=== PATIENT | female | born 1930 | race Caucasian/White ===

== ENCOUNTER 2016-12-29 18:27 | Emergency (ER) | payer OTHER ==
[~2016-12-29] VITALS: Ht 162.6 cm; Wt 60.4 kg
[~2016-12-29 18:27] MED LIST: AMB5 PO; CIPR1TAB11 PO; CLTP PO; CYAN1TAB2 PO; GLUC10007 PO; MULT-506 PO; TOLT2TAB PO; TRAM1TAB14 PO; [UNRECOGNIZED DRUG - OTHER] PO; lasix; potassium
[2016-12-29 18:30] VITALS: TEMP 36.4; Ht 162.6 cm; Wt 60.4 kg
[2016-12-29] MEDS ORDERED: OYST500T47 PO (18:51)
[2016-12-29] MEDS ORDERED: OXYB5TAB PO (18:51)
[2016-12-29] MEDS ORDERED: CRDCD/180 PO (18:51)
[2016-12-29] MEDS ORDERED: CHOL1000 PO (18:51)
[2016-12-29] MEDS ORDERED: CEPH500C2 PO (19:14)
[2016-12-29] MEDS ORDERED: CEPHALEXIN 500MG HOME PACK 1 EA BTL PO ONE (19:15)
[2016-12-29 19:40] VITALS: BP 158/91; PULSE 92; O2SAT 98
--- NOTE | 2016-12-29 22:14 | EMERGENCY ROOM VISIT NOTE ---
ED Visit Note First contact with patient: 18:35 Chief Complaint: I think I have an infected on my leg. History of Present Illness: Ms. Oneill is an 78-year-old white female who ambulates into the ED expressing concerns about a possible infected, nonhealing wound over the anterior aspect of the left lower leg. Patient reports approximately 3 weeks ago she noticed a small dark dry patch of skin on the anterior aspect of the left lower leg. She reports she picked the dry skin off and it bled slightly. Within a week she noticed some mild redness and swelling in this area. She reports she was seen at a local urgent care center and was prescribed a 10 day course of antibiotics; she does not remember the name of the antibiotics and we attempted to contact her pharmacy they were already closed. She reports since finishing the antibiotic she still has redness and mild swelling. She also notes when she squeezes this area she has a small amount of clear yellowish drainage. She does report when the area is palpated is tender but if no one is touching the lesion she is not having any discomfort. She has been cleaning the area with soap and water and covered with an antibiotic dressing but that has not decreased the redness or swelling either. She denies fevers, chills, sweats, other skin eruptions, other skin color changes, decreased appetite, nausea, vomiting, chest pain, shortness of breath, left leg weakness/numbness/tingling. Review of Systems: As noted above in history of present illness. 8 body systems were reviewed and found to be negative as noted above. Past Medical History: Peripheral neuropathy, osteoarthritis, anemia, basal cell cancer, cataract surgery. Current Medications: Medications Dose Route/Sig Max Daily Dose Days Date Category Dose Instructions Keflex (Cephalexin Monohydrate) 500 Mg Cap 500 Mg PO QID 6 12/29/16 Rx Cardizem Cd (Diltiazem Hcl Coated Beads) Unknown Strength Cap Unknown Dose PO DAILY 12/29/16 Reported PT STATES "TAKES ON OCCASION". Calcium (Oyster Shell) Unknown Strength Tab Unknown Dose PO DAILY 12/29/16 Reported Vitamin D3 (Cholecalciferol) Unknown Strength Tab Unknown Dose PO DAILY 90 12/29/16 Reported Oxybutynin Chloride Er (Oxybutynin Chloride) Unknown Strength Tab Unknown Dose PO DAILY 90 12/29/16 Reported Glucosamine (Glucosamine Sulfate) 1,000 Mg Tab 1,000 Mg PO WK 09/24/13 Reported B-12 (Cyanocobalamin) 100 Mcg Tab 1,000 Mg PO DAILY 09/24/13 Reported Multivitamin (Multivitamins) Tab 1 Tab PO DAILY 02/24/07 Reported Allergies to Medications: Patient denies. Social History: Patient feels safe in her home environment IS not employed; she denies tobacco and alcohol use. Physical Examination: Vital Signs: Date Time Temp Pulse Resp B/P Pulse Ox O2 Delivery O2 Flow Rate FiO2 12/29/16 19:40 92 18 158/91 98 12/29/16 18:30 36.4 75 18 153/93 94 Room Air GENERAL: 86-year-old female in no acute distress, nontoxic-appearing, afebrile and hemodynamically stable. NEUROLOGICAL: Awake, alert and oriented to person, place and time. Answering questions appropriately and following commands. Normal gait. SKIN: Warm, dry and pink. Left Lower Leg: Over the mid tibial area patient has a superficial open wound that is surrounded with some mild erythema and edema. This area is slightly warm to the touch when compared to the rest of her leg and bilaterally. I did push on the wound was not able to express any fluids. There is no lymphangitis or palpable abscess. The wound is slightly tender to touch. Skin does not appear cellulitic. THORAX: Lungs sounds are clear to auscultation and equal bilaterally with symmetrical chest wall. ABDOMEN: Flat, soft and nontender. Positive bowel sounds in all quadrants. No guarding, rigidity or organomegaly. LEFT LOWER EXTREMITIES: Please note SKIN above. No gross bony deformity. No tenderness in the knee, ankle or foot. Mild tenderness over her soft tissue wound. Full range of motion in flexion and extension of the knee and plantar flexion, dorsiflexion and inversion and eversion of the ankle. Throughout the foot the skin was warm and pink and capillary refill is brisk. She is able to distinguish light sensations through all dermatomes. No calf tenderness or cords. ED Course: Patient is assessed as noted above. Patient's case was reviewed with Dr. Sam; she in apparently assessed the patient we agreed on diagnostic approach, treatment, disposition and plan. Patient's area of erythema was demarcated with a marker line and a clean bacitracin dressing was applied. Patient was educated about tonight's findings and instructed on her treatment plan; she verbalized understanding and agreement with this plan. Clinical Impression: Left lower leg wound infection. Disposition: Patient discharged home in stable condition; prior to departure she was reassessed and subjectively reported she was feeling the same. Plan: Comfort measures, wound care and worsening signs of instructions were discussed with the patient. Patient was placed on Keflex 500 mg 4 times a day for 7 days. Patient was encouraged to follow-up with her PCP or return to the ED and 36-48 hours for recheck. Patient was encouraged return the ED sooner for increasing redness/swelling, red streaking, fevers or any new/concerning symptoms.
== END 2016-12-29 19:41 | disposition home or self-care (01) ==
LOC: C.EDB 18:29 → C.EDD 19:41
DX: B99.9 Unspecified infectious disease (principal); S81.802A Unspecified open wound, left lower leg, initial encounter; Z79.899 Other long term (current) drug therapy; Z85.828 Personal history of other malignant neoplasm of skin; X58.XXXA Exposure to other specified factors, initial encounter; Y99.8 Other external cause status

== ENCOUNTER 2017-01-12 12:40 | Emergency (ER) | payer OTHER ==
[~2017-01-12] VITALS: Ht 162.6 cm; Wt 62.0 kg
[~2017-01-12 12:40] MED LIST changes: -AMB5 PO; +CHOL1000 PO; -CIPR1TAB11 PO; -CLTP PO; +CRDCD/180 PO; +OXYB5TAB PO; +OYST500T47 PO; -TOLT2TAB PO; -TRAM1TAB14 PO; -[UNRECOGNIZED DRUG - OTHER] PO; -lasix; -potassium
[2017-01-12 12:43] VITALS: TEMP 36.4
[2017-01-12] MEDS ORDERED: CALCTAB43 PO (13:11)
[2017-01-12] MEDS ORDERED: CHOL1CAP12 PO (13:11)
[2017-01-12] MEDS ORDERED: DTRSR/10 PO (13:11)
[2017-01-12] MEDS ORDERED: DILT90TA PO (13:11)
[2017-01-12] MEDS ORDERED: ZOLP10TA PO (13:11)
[2017-01-12] MEDS ORDERED: ALEN70TA2 PO (13:13)
[2017-01-12 13:15] VITALS: Ht 162.6 cm; Wt 62.0 kg
[2017-01-12 13:16] VITALS: O2SAT 99
--- NOTE | 2017-01-12 13:23 | EMERGENCY ROOM VISIT NOTE ---
History Report prepared by [place]: Brandy Jacobson Under the Supervision of: Dr. Robert Calix D.O. First contact with patient: 13:03 Chief Complaint: CARDIAC ASSESSMENT Stated Complaint: DIZZINESS Nursing Triage Summary: patient to ED via ALS, reports discontinuing cardizem one week ago because she was unsure why she was taking it, states "I just didn't feel it was necessary. But this morning at [facility] I was feeling weak and a little dizzy." denies chest pain, shortness of breath, recent illness History of Present Illness The patient is a 86 year old female who presents to the Emergency Room via ALS with complaints of constant generalized dizziness starting a few hours DENTIST. The patient states that earlier today she felt an onset of dizziness. The patient denies that she had room spinning dizziness but states she was generally dizzy. The patient states that she did miss breakfast this morning, but states that she has been eating and drinking normally. The patient states she does have some baseline left leg swelling but no recent change. The patient denies any rectal bleeding, chest pain, SOB, weakness in her arms or leg. The patient states that she had been taking Cardizem but about 1 week ago she stopped taking it because she did not know what she was taking it for. The patient states she has no history of blood clots, diabetes hypertension, myocardial infarctions or strokes. The patient states she did have a hysterectomy but has no history of cancer. Source of History: patient Onset: few hours DENTIST Position: other (global) Timing: constant Associated Symptoms: No SOB, No chest pain, No weakness Note: Associated symptoms: baseline left leg swelling. Patient denies rectal bleeding. Review of Systems See HPI for pertinent positives & negatives. A total of 10 systems reviewed and were otherwise negative. Past Medical & Surgical Surgical Problems: (1) H/O: hysterectomy Family History No pertient family history secondary to age. Social History Smoking Status: Never Smoker Alcohol Use: none Drug Use: none Marital Status: Occupation Status: retired Current/Historical Medications Scheduled Alendronate Sodium (Fosamax), 70 MG PO WK Calcium Carbonate-Vitamin D (Oyster Shell/Vitamin D), 1 TAB PO DAILY Cholecalciferol (D3), 400 UNITS PO DAILY Cyanocobalamin (B-12), 1,000 MG PO DAILY Diltiazem Hcl (Cardizem), 90 MG PO DAILY Glucosamine Sulfate (Glucosamine), 1,000 MG PO WK Multivitamin (Multivitamin), 1 TAB PO DAILY Oxybutynin Chloride (Oxybutynin Chloride ER), 20 MG PO DAILY Scheduled PRN Zolpidem Tartrate (Ambien), 10 MG PO HS PRN for Sleep Allergies Coded Allergies: No Known Allergies (Unverified , 01/12/17) Physical Exam Vital Signs Date Time Temp Pulse Resp B/P Pulse Ox O2 Delivery O2 Flow Rate FiO2 01/12/17 16:02 79 20 159/104 98 Room Air 01/12/17 14:15 86 20 143/80 99 Room Air 01/12/17 13:35 70 20 135/76 99 Room Air 76 132/81 85 147/85 01/12/17 13:16 99 Room Air 01/12/17 12:51 73 01/12/17 12:48 99 Room Air 01/12/17 12:45 96 Room Air 01/12/17 12:43 36.4 73 20 141/95 96 Room Air Physical Exam GENERAL: Patient is awake, alert, and in no acute distress. Patient is resting comfortably and showing no signs of anxiety EYES: The conjunctivae are clear. The pupils are round and reactive. EARS, NOSE, MOUTH AND THROAT: The nose is without any evidence of any deformity. Mucous membranes are moist tongue is midline NECK: The neck is nontender and supple. RESPIRATORY: Normal respiratory effort is noted there is no evidence of wheezing rhonchi or rales CARDIOVASCULAR: Regular rate and rhythm noted there no murmurs rubs or gallops normal S1 normal S2 GASTROINTESTINAL: The abdomen is soft. Bowel sounds are present in all quadrants. Abdomen is nontender MUSCULOSKELETAL/EXTREMITIES: There is no evidence of gross deformity full range of motion is noted in the hips and shoulders SKIN: There is no obvious evidence of any rash. There are no petechiae, pallor or cyanosis noted. Mild left calf tenderness with no signs of swelling, no signs of erythema. NEUROLOGIC: Patient is awake alert and oriented x3 strength is symmetric bilaterally. No facial droop appreciated. Medical Decision & Procedures ER Provider Diagnostic Interpretation: X-ray results as stated below per interpretation by me and the radiologist. CHEST ONE VIEW PORTABLE CLINICAL HISTORY: Altered mental status. Weakness. COMPARISON STUDY: No previous studies for comparison. FINDINGS: Lung volumes are normal. No consolidation is identified. There is no evidence of pulmonary edema. Cardiomediastinal silhouette is normal. There are several suspected calcified nodules within the lungs. IMPRESSION: No acute cardiopulmonary findings. Electronically signed by: Dat Light M.D. 01/12/2017 1:35 PM Dictated Date/Time: 01/12/2017 1:[address] results as stated below per my review and radiologist interpretation. CT OF THE HEAD WITHOUT CONTRAST CLINICAL HISTORY: Altered mental status. Weakness. Dizziness. COMPARISON STUDY: No previous studies for comparison. CT DOSE: 537.48 mGy.cm TECHNIQUE: Helical axial images of the head were obtained without IV contrast. Automated exposure control was utilized for the study. FINDINGS: No acute intracranial hemorrhage, midline shift or mass effect is present. Ventricular system is unremarkable for age. Basilar cisterns are patent. There are no extra-axial collections. There are no findings to suggest acute dural sinus thrombosis or acute territorial infarct. White matter hypodensities suggest small vessel disease. There are no significant calvarial abnormalities. Visualized portions of the sinuses and mastoid air cells are clear. IMPRESSION: No acute intracranial findings. Electronically signed by: Dat Light M.D. 01/12/2017 2:45 PM Dictated Date/Time: 01/12/2017 2:43 PM US results as stated below per my review and radiologist interpretation. LEFT LOWER EXTREMITY VENOUS DOPPLER CLINICAL HISTORY: Left lower extremity pain. COMPARISON STUDY: Bilateral lower extremity venous Doppler September 30, 2012. TECHNIQUE: Sonography of the deep venous system of the left lower extremity was performed. Compression and augmentation were evaluated. FINDINGS: The left common femoral, superficial femoral and popliteal veins were compressible. Augmentation was normal. Flow was shown within the deep calf vessels. IMPRESSION: No evidence of deep venous thrombus within the left lower extremity. Electronically signed by: Dat Light M.D. 01/12/2017 3:38 PM Dictated Date/Time: 01/12/2017 3:38 PM Laboratory Results 01/12/17 13:50 Red Blood Count 4.88, Mean Corpuscular Volume 87.9, Mean Corpuscular Hemoglobin 29.5, Mean Corpuscular Hemoglobin Concent 33.6, Mean Platelet Volume 9.6, Neutrophils (%) (Auto) 64.2, Lymphocytes (%) (Auto) 29.8, Monocytes (%) (Auto) 4.9, Eosinophils (%) (Auto) 0.7, Basophils (%) (Auto) 0.2, Neutrophils # (Auto) 3.68, Lymphocytes # (Auto) 1.71, Monocytes # (Auto) 0.28, Eosinophils # (Auto) 0.04, Basophils # (Auto) 0.01 01/12/17 13:50 Test 01/12/17 13:39 01/12/17 13:40 01/12/17 13:50 01/12/17 14:34 Bedside Glucose 101 mg/dl (70-90) Urine Color YELLOW Urine Appearance CLEAR (CLEAR) Urine pH 6.5 (4.5-7.5) Urine Specific [place] 1.005 (1.000-1.030) Urine Protein NEG (NEG) Urine Glucose (UA) NEG (NEG) Urine Ketones NEG (NEG) Urine Occult Blood NEG (NEG) Urine Nitrite NEG (NEG) Urine Bilirubin NEG (NEG) Urine Urobilinogen NEG (NEG) Urine Leukocyte Esterase NEG (NEG) White Blood Count 5.73 K/uL (4.8-10.8) Red Blood Count 4.88 M/uL (4.2-5.4) Hemoglobin 14.4 g/dL (12.0-16.0) Hematocrit 42.9 % (37-47) Mean Corpuscular Volume 87.9 fL (80-100) Mean Corpuscular Hemoglobin 29.5 pg (25-34) Mean Corpuscular Hemoglobin Concent 33.6 g/dl (32-36) Platelet Count 209 K/uL (130-400) Mean Platelet Volume 9.6 fL (7.4-10.4) Neutrophils (%) (Auto) 64.2 % Lymphocytes (%) (Auto) 29.8 % Monocytes (%) (Auto) 4.9 % Eosinophils (%) (Auto) 0.7 % Basophils (%) (Auto) 0.2 % Neutrophils # (Auto) 3.68 K/uL (1.4-6.5) Lymphocytes # (Auto) 1.71 K/uL (1.2-3.4) Monocytes # (Auto) 0.28 K/uL (0.11-0.59) Eosinophils # (Auto) 0.04 K/uL (0-0.5) Basophils # (Auto) 0.01 K/uL (0-0.2) RDW Standard Deviation 43.4 fL (36.4-46.3) RDW Coefficient of Variation 13.4 % (11.5-14.5) Immature Granulocyte % (Auto) 0.2 % Immature Granulocyte # (Auto) 0.01 K/uL (0.00-0.02) Anion Gap 11.0 mmol/L (3-11) Est Creatinine Clear Calc Drug Dose 39.5 ml/min Estimated GFR () 70.9 Estimated GFR (Non- 61.2 BUN/Creatinine Ratio 24.1 (10-20) Calcium Level 9.4 mg/dl (8.5-10.1) Magnesium Level 2.0 mg/dl (1.8-2.4) Total Bilirubin 0.4 mg/dl (0.2-1) Direct Bilirubin mg/dl (0-0.2) Aspartate Amino Transf (AST/SGOT) 29 U/L (15-37) Alanine Aminotransferase (ALT/SGPT) 29 U/L (12-78) Alkaline Phosphatase 77 U/L (45-117) Total Creatine Kinase 110 U/L (26-192) Creatine Kinase MB 3.5 ng/ml (0.5-3.6) Creatine Kinase MB Ratio 3.2 (0-3.0) Troponin I < 0.015 ng/ml (0-0.045) Total Protein 6.8 gm/dl (6.4-8.2) Albumin 3.8 gm/dl (3.4-5.0) Thyroid Stimulating Hormone (TSH) 2.440 uIu/ml (0.300-4.500) Chemistry Specimen Hemolysis Prothrombin Time 10.4 SECONDS (9.0-12.0) Prothromb Time International Ratio 1.0 (0.9-1.1) Activated Partial Thromboplast Time 25.7 SECONDS (21.0-31.0) Partial Thromboplastin Ratio 1.0 Laboratory results per my review. Medications Administered Medications (Trade) Dose Ordered Sig/Elbert Route Start Time Stop Time Status Last Admin Dose Admin Diltiazem HCl (Cardizem Tab) 90 mg NOW ONCE PO 01/12/17 15:45 01/12/17 15:46 DC 01/12/17 15:51 90 MG ECG Indication: other (dizziness) Rate (beats per minute): 73 Rhythm: normal sinus Findings: no ectopy, other (No ST segment abnormalities) Comparison ECG Date: no prior available ED Course 1307: The patient was evaluated in room C3. A complete history and physical examination were performed. 1545: Ordered Cardizem Tab 90 mg PO. 1600: Upon reevaluation, the patient is resting comfortably. I discussed the results and treatment plan with her. She verbalized agreement of the treatment plan. The patient was discharged home. Medical Decision Differential diagnosis: Etiologies such as benign positional vertigo, dehydration, hypovolemia, anemia, tumor, infection, hypoglycemia, electrolyte abnormalities, cardiac sources, intracerebral event, toxicologic, neurologic, as well as others were entertained. Nursing notes reviewed. The patient is an 86-year-old female who presented to the emergency department for an evaluation of dizziness. She did not quite explain the dizziness as vertigo or near syncope. She thought it could be related to the fact that she stop taking one of her blood pressure medications. The patient did not appear to have orthostatic hypotension. She was able to ambulate multiple times while she was in the emergency department. She was treated with her outpatient blood pressure medication. I discussed the patient's laboratory and radiographic studies with her. She was encouraged to rest and avoid any strenuous activity. She was also encouraged to continue all medications as prescribed and follow-up with her primary care physician this week. He was also encouraged to return to the emergency department immediately if symptoms change worsen or if the need arises. Impression Primary Impression: Dizziness Scribe Attestation The scribe's documentation has been prepared under my direction and personally reviewed by me in its entirety. I confirm that the note above accurately reflects all work, treatment, procedures, and medical decision making performed by me. Departure Information Dispostion Home / Self-Care Referrals Pina Ivory M.D. (PCP) Forms IMPORTANT VISIT INFORMATION Patient Instructions My [facility] Additional Instructions Continue all medications as prescribed. Call your family in the morning to schedule a follow-up appointment. Rest and avoid any strenuous activity. Return to the emergency department immediately if symptoms change worsen or the need arises.
--- NOTE | 2017-01-12 13:36 | DIAGNOSTIC IMAGING REPORT ---
CHEST ONE VIEW PORTABLE CLINICAL HISTORY: Altered mental status. Weakness. COMPARISON STUDY: No previous studies for comparison. FINDINGS: Lung volumes are normal. No consolidation is identified. There is no evidence of pulmonary edema. Cardiomediastinal silhouette is normal. There are several suspected calcified nodules within the lungs. IMPRESSION: No acute cardiopulmonary findings. Electronically signed by: Dat Light M.D. 01/12/2017 1:35 PM Dictated Date/Time: 01/12/2017 1:34 PM
[2017-01-12 13:55] LABS: URINE APPEARANCE CLEAR (CLEAR); URINE BILIRUBIN NEG (NEG); URINE COLOR YELLOW; URINE NITRITE NEG (NEG); URINE PH 6.5 (4.5-7.5); URINE SPECIFIC GRAVITY 1.005 (1.000-1.030); UROBILINOGEN NEG (NEG)
[2017-01-12 13:59] LABS: MANUAL MICROSCOPIC REQUIRED? NO; REVIEW REQ? NO
[2017-01-12 14:03] LABS: BASO % 0.2 %; BASO ABS # 0.01 K/uL (0-0.2); COMPLETE YES; EOS % 0.7 %; HEMATOCRIT 42.9 % (37-47); IG% 0.2 %; LYMPH % 29.8 %; LYMPH ABS # 1.71 K/uL (1.2-3.4); MEAN CELL VOLUME 87.9 fL (80-100); MEAN CORPUSCULAR HEMOGLOBIN 29.5 pg (25-34); MEAN CORPUSCULAR HGB CONC 33.6 g/dl (32-36); MEAN PLATELET VOLUME 9.6 fL (7.4-10.4); MONO % 4.9 %; NEUT % 64.2 %; PLATELET COUNT 209 K/uL (130-400); RED BLOOD COUNT 4.88 M/uL (4.2-5.4); WHITE BLOOD COUNT 5.73 K/uL (4.8-10.8)
[2017-01-12 14:23] LABS: ALT/SGPT 29 U/L (12-78); BLOOD UREA NITROGEN 21 mg/dl (7-18); BUN/CREATININE RATIO 24.1 (10-20); CALCIUM 9.4 mg/dl (8.5-10.1); CARBON DIOXIDE 26 mmol/L (21-32); CHLORIDE 104 mmol/L (98-107); CREATININE 0.85 mg/dl (0.60-1.20); GLUCOSE 97 mg/dl (70-99); POTASSIUM 4.2 mmol/L (3.5-5.1); SODIUM 141 mmol/L (136-145)
[2017-01-12 14:31] LABS: ALKALINE PHOSPHATASE 77 U/L (45-117); AST/SGOT 29 U/L (15-37); CKMB/CK RATIO 3.2 (0-3.0)
--- NOTE | 2017-01-12 14:47 | DIAGNOSTIC IMAGING REPORT ---
CT OF THE HEAD WITHOUT CONTRAST CLINICAL HISTORY: Altered mental status. Weakness. Dizziness. COMPARISON STUDY: No previous studies for comparison. CT DOSE: 537.48 mGy.cm TECHNIQUE: Helical axial images of the head were obtained without IV contrast. Automated exposure control was utilized for the study. FINDINGS: No acute intracranial hemorrhage, midline shift or mass effect is present. Ventricular system is unremarkable for age. Basilar cisterns are patent. There are no extra-axial collections. There are no findings to suggest acute dural sinus thrombosis or acute territorial infarct. White matter hypodensities suggest small vessel disease. There are no significant calvarial abnormalities. Visualized portions of the sinuses and mastoid air cells are clear. IMPRESSION: No acute intracranial findings. Electronically signed by: Dat Light M.D. 01/12/2017 2:45 PM Dictated Date/Time: 01/12/2017 2:43 PM
[2017-01-12 14:58] LABS: PROTHROMBIN TIME (PATIENT) 10.4 SECONDS (9.0-12.0)
--- NOTE | 2017-01-12 15:40 | DIAGNOSTIC IMAGING REPORT ---
LEFT LOWER EXTREMITY VENOUS DOPPLER CLINICAL HISTORY: Left lower extremity pain. COMPARISON STUDY: Bilateral lower extremity venous Doppler September 30, 2012. TECHNIQUE: Sonography of the deep venous system of the left lower extremity was performed. Compression and augmentation were evaluated. FINDINGS: The left common femoral, superficial femoral and popliteal veins were compressible. Augmentation was normal. Flow was shown within the deep calf vessels. IMPRESSION: No evidence of deep venous thrombus within the left lower extremity. Electronically signed by: Dat Light M.D. 01/12/2017 3:38 PM Dictated Date/Time: 01/12/2017 3:38 PM
[2017-01-12] MEDS ORDERED: DILTIAZEM HCL 30 MG TAB PO ONE (15:45)
[2017-01-12 16:02] VITALS: BP 159/104; PULSE 79; O2SAT 98
== END 2017-01-12 16:17 | disposition home or self-care (01) ==
LOC: EDBD 12:40 → C.EDC 12:41
DX: R42 Dizziness and giddiness (principal); Z90.710 Acquired absence of both cervix and uterus; M79.605 Pain in left leg; M79.89 Other specified soft tissue disorders; Z79.899 Other long term (current) drug therapy

== ENCOUNTER → 2017-05-30 | Outpatient (CLI) | payer OTHER ==
[~2017-05-30] MED LIST changes: +ALEN70TA2 PO; +CALCTAB43 PO; -CHOL1000 PO; +CHOL1CAP12 PO; -CRDCD/180 PO; +DILT90TA PO; +DTRSR/10 PO; -OXYB5TAB PO; -OYST500T47 PO; +ZOLP10TA PO
--- NOTE | 2017-05-30 12:17 | DIAGNOSTIC IMAGING REPORT ---
LEFT ANKLE MIN 3 VIEWS ROUTINE CLINICAL HISTORY: Left ankle pain. Wound. Possible osteomyelitis. COMPARISON: None. DISCUSSION: There are soft tissue calcifications, likely cutaneous. No acute fractures or dislocations are visualized. There are no destructive lesions to indicate osteomyelitis. IMPRESSION: 1. No fractures or dislocations 2. No conventional radiographic evidence of osteomyelitis 3. Cutaneous/subcutaneous calcifications. Electronically signed by: Cole Parker M.D. 05/30/2017 12:16 PM Dictated Date/Time: 05/30/2017 12:15 PM
--- NOTE | 2017-05-30 12:17 | DIAGNOSTIC IMAGING REPORT ---
LEFT TIBIA/FIBULA 2 VIEWS ROUTINE CLINICAL HISTORY: LEFT ANKLE PAIN/LEFT LEG WOUND pain COMPARISON: None. DISCUSSION: The bones and joint spaces appear intact. There is no evidence of fracture, dislocation or bony disease. Mild pretibial soft tissue edema. No evidence for bony destructive process. IMPRESSION: Mild soft tissue edema. No acute bony abnormality. The above report was generated using voice recognition software. It may contain grammatical, syntax or spelling errors. Electronically signed by: Junior Braxton M.D. 05/30/2017 12:16 PM Dictated Date/Time: 05/30/2017 12:15 PM
== END | disposition home or self-care (01) ==
LOC: C.RAD1850 11:55
PROVIDERS: ATTEND Family Medicine Hospice and Palliative Medicine
DX: M25.572 Pain in left ankle and joints of left foot (principal); S91.002A Unspecified open wound, left ankle, initial encounter; X58.XXXA Exposure to other specified factors, initial encounter

== ENCOUNTER → 2017-06-02 | Outpatient (CLI) | payer OTHER ==
--- NOTE | 2017-06-02 17:01 | DIAGNOSTIC IMAGING REPORT ---
LEFT LOWER EXTREMITY VENOUS DOPPLER HISTORY: LEFT LEG Swelling, tenderness , CELLULITIS COMPARISON STUDY: Left leg venous Doppler 01/12/2017. FINDINGS: There is normal compressibility, flow, and augmentation within the left lower extremity deep venous system. IMPRESSION: No DVT within the left lower extremity. Electronically signed by: Robert Mittal M.D. 06/02/2017 5:00 PM Dictated Date/Time: 06/02/2017 5:00 PM
== END | disposition home or self-care (01) ==
LOC: C.ULTR 15:40
PROVIDERS: ATTEND Student in an Organized Health Care Education/Training Program
DX: L03.119 Cellulitis of unspecified part of limb (principal); M79.605 Pain in left leg

== ENCOUNTER → 2017-11-07 | Outpatient (CLI) | payer OTHER ==
--- NOTE | 2017-11-07 11:30 | DIAGNOSTIC IMAGING REPORT ---
R SHOULDER MIN 2 VIEWS ROUTINE CLINICAL HISTORY: Right shoulder pain. COMPARISON: None. DISCUSSION: No acute fractures or dislocations are visualized. There is a small calcification located superior to the humeral head. This could indicate calcific tendinitis. There are old fractures of the right fourth and fifth ribs. There is an equivocal old scapular fracture. IMPRESSION: 1. No acute fractures or dislocations 2. Possible calcific tendinitis Electronically signed by: Cole Parker M.D. 11/07/2017 11:29 AM Dictated Date/Time: 11/07/2017 11:27 AM
--- NOTE | 2017-11-07 11:33 | DIAGNOSTIC IMAGING REPORT ---
RIGHT HUMERUS 2 VIEWS HISTORY: Right arm pain. COMPARISON: None. FINDINGS: There is no fracture or dislocation. Soft tissues are unremarkable. No radiopaque foreign bodies. Questionable elbow effusion. IMPRESSION: No fracture or dislocation within the right humerus. Questionable elbow effusion. If the patient is complaining of elbow pain then a dedicated elbow radiograph is recommended for further evaluation. Electronically signed by: Robert Mittal M.D. 11/07/2017 11:32 AM Dictated Date/Time: 11/07/2017 11:28 AM
== END | disposition home or self-care (01) ==
LOC: C.RAD1850 10:50
PROVIDERS: ATTEND Family Medicine
DX: S49.91XA Unspecified injury of right shoulder and upper arm, initial encounter (principal); X58.XXXA Exposure to other specified factors, initial encounter

== ENCOUNTER → 2018-05-12 | Outpatient (CLI) | payer OTHER ==
[2018-05-12 17:30] LABS: BASO % 0.4 %; BASO ABS # 0.03 K/uL (0-0.2); EOS % 2.2 %; EOS ABS # 0.16 K/uL (0-0.5); HEMATOCRIT 41.6 % (37-47); HEMOGLOBIN 13.9 g/dL (12.0-16.0); IG# 0.02 K/uL (0.00-0.02); LYMPH % 25.5 %; LYMPH ABS # 1.87 K/uL (1.2-3.4); MEAN CELL VOLUME 88.7 fL (80-100); MEAN CORPUSCULAR HEMOGLOBIN 29.6 pg (25-34); MEAN CORPUSCULAR HGB CONC 33.4 g/dl (32-36); MEAN PLATELET VOLUME 9.5 fL (7.4-10.4); MONO ABS # 0.59 K/uL (0.11-0.59); NEUT % 63.6 %; NEUT ABS # 4.66 K/uL (1.4-6.5); PLATELET COUNT 242 K/uL (130-400); RED CELL DISTRIBUTION WIDTH CV 13.7 % (11.5-14.5); RED CELL DISTRIBUTION WIDTH SD 44.3 fL (36.4-46.3); WHITE BLOOD COUNT 7.33 K/uL (4.8-10.8)
[2018-05-12 18:04] LABS: ALBUMIN 3.8 gm/dl (3.4-5.0); ALKALINE PHOSPHATASE 73 U/L (45-117); ALT/SGPT 33 U/L (12-78); AST/SGOT 24 U/L (15-37); BLOOD UREA NITROGEN 27 mg/dl (7-18); CARBON DIOXIDE 26 mmol/L (21-32); CREATININE 0.88 mg/dl (0.60-1.20); GLUCOSE 83 mg/dl (70-99); SODIUM 137 mmol/L (136-145); TOTAL PROTEIN 6.9 gm/dl (6.4-8.2)
== END | disposition home or self-care (01) ==
LOC: C.LAB1850 17:04
PROVIDERS: ATTEND Physician Assistant
DX: R00.0 Tachycardia, unspecified (principal); R41.89 Other symptoms and signs involving cognitive functions and awareness